=== PATIENT | male | born 1980 | race Caucasian/White ===

== ENCOUNTER 2019-08-15 21:36 | Emergency (ER) | payer SELFPAY ==
[~2019-08-15] VITALS: Ht 172.7 cm; Wt 61.2 kg
[2019-08-15 21:53] VITALS: BP 139/95
--- NOTE | 2019-08-15 21:54 | PHYS DOC ---
Adult General Chief Complaint Chief Complaint: FOOT INJURY PAIN.. "I don't know what is happening to my feet.. the Rt. is worse than the left... I don't know it is these cheap [employer] boots.. or I got pepper bite or something. I ve been workling out side..." HPI HPI Patient is a 39 year old male who presents with above hx and complaints bilateral foot pain, more Rt. foot. Patient has edema to both feet. Has with erytherma of toes of both feet. Does have findings of tinea between toes. Capillary refill is slightly reduced in both feet. Patient denies any trauma. 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 Patient denies any direct injury to feet chest trauma. No history immunosuppression. No history of travel. No history of fevers. Patient does smoke. No history of diabetes. Review of Systems Review of Systems Constitutional: Denies fever or chills [] Eyes: Denies change in visual acuity, redness, or eye pain [] HENT: Denies nasal congestion or sore throat [] Respiratory: Denies cough or shortness of breath [] Cardiovascular: No additional information not addressed in HPI [] GI: Denies abdominal pain, nausea, vomiting, bloody stools or diarrhea [] : Denies dysuria or hematuria [] Musculoskeletal: Denies back pain or joint pain [ .The pt. ]complaints of bilateral foot pain Integument: Complaints of skin lesions between toes Neurologic: Denies headache, focal weakness or sensory changes [] Endocrine: Denies polyuria or polydipsia [] All other systems were reviewed and found to be within normal limits, except as documented in this note. Family History Family History Noncontributory Current Medications Current Medications See nursing for home meds Allergies Allergies No known drug allergies Physical Exam Physical Exam Constitutional: Moderate acute distress, non-toxic appearance. [] HENT: Normocephalic, atraumatic, bilateral external ears normal, oropharynx moist, no oral exudates, nose normal. [] Eyes: PERRLA, EOMI, conjunctiva normal, no discharge. [] Neck: Normal range of motion, no tenderness, supple, no stridor. [] Cardiovascular:Heart rate regular rhythm, no murmur [] Lungs & Thorax: Bilateral breath sounds with apex with scattered wheezes on auscultation [] Abdomen: Bowel sounds normal, soft, no tenderness, no masses, no pulsatile masses. [] Skin: Upper body Warm, dry, no erythema, no rash. [] Does have erythema and s welling of toes. Has Tenia between toes. Back: No tenderness, no CVA tenderness. [] Extremities: No tenderness, no cyanosis, no clubbing, ROM intact, no edema. Except findings of bilateral foot edema and pain as per history of present illness Neurologic: Alert and oriented X 3, normal motor function, normal sensory f unction, no focal deficits noted. [] Psychologic: Affect anxious, judgement normal, mood normal. [] EKG EKG [] Radiology/Procedures Radiology/Procedures [] Course & Med Decision Making Course & Med Decision Making Pertinent Labs and Imaging studies reviewed. (See chart for details) Pt to episome salt soaks or salt soaks twice a day. Afterwards apply [id number] antifungal. Patient take Tylenol and ibuprofen for pain. Patient change socks frequently. Patient to keep feet dry and avoid prolonged exposure to cold. Patient encouraged to stop smoking. Follow-up primary care. Impression: 1. Chilblains/ frostbite 2. Tenia [] Dragon Disclaimer Dragon Disclaimer This electronic medical record was generated, in whole or in part, using a voice recognition dictation system. Departure Departure: Disposition: 01 HOME/RESIDENCE PRIOR TO ADM Condition: STABLE Referrals: PCP,NO (PCP) Pascale Disclaimer This chart was dictated in whole or in part using Voice Recognition software in a busy, high-work load, and often noisy Emergency Department environment. It may contain unintended and wholly unrecognized errors or omissions. CLEO SIGALA MD Aug 15, 2019 21:54
[2019-08-15] MEDS ORDERED: DIPHTH,PERTUSS(ACELL),TET TOX 0.5 ML DISP.SYRIN. VAX IM ONE (22:30)
[2019-08-15] MEDS ORDERED: KETOROLAC 60 MG/2 ML VIAL. IM ONE (22:30)
== END 2019-08-15 22:50 | disposition home or self-care (01) ==
LOC: ER 21:36
DX: B35.3 Tinea pedis (principal); M79.672 Pain in left foot; M79.671 Pain in right foot; R60.0 Localized edema
CPT/HCPCS: 90471; 90715; 96372; 99284; J1885